=== PATIENT | male | born 1940 | race Caucasian/White ===

== ENCOUNTER 2016-10-11 08:53 | Day surgery (SDC) | payer OTHER ==
[2016-10-11] MEDS ORDERED: D5 LR 1000 ML 1,000 ML IV ONE (09:32)
[2016-10-11] MEDS ORDERED: DIPRIVAN VIAL 20 ML ONE (10:43)
[2016-10-11 11:23] VITALS: BP 122/74
== END 2016-10-11 10:27 | disposition home or self-care (01) ==
LOC: SURG1 08:53
PROVIDERS: ATTEND Internal Medicine Gastroenterology
PROC: 0DJ08ZZ Inspection of Upper Intestinal Tract, Via Natural or Artificial Opening Endoscopic (ICD-10-PCS; principal; 2016-10-11 10:00)
PROC: 0DB88ZX Excision of Small Intestine, Via Natural or Artificial Opening Endoscopic, Diagnostic (ICD-10-PCS; principal; 2016-10-11 10:00)
PROC: 0DB68ZX Excision of Stomach, Via Natural or Artificial Opening Endoscopic, Diagnostic (ICD-10-PCS; principal; 2016-10-11 10:00)
DX: K21.9 Gastro-esophageal reflux disease without esophagitis (principal); R10.13 Epigastric pain; K29.60 Other gastritis without bleeding; K25.9 Gastric ulcer, unspecified as acute or chronic, without hemorrhage or perforation; K44.9 Diaphragmatic hernia without obstruction or gangrene; K20.8 Other esophagitis; Z85.858 Personal history of malignant neoplasm of other endocrine glands; Z80.0 Family history of malignant neoplasm of digestive organs
CPT/HCPCS: 99100; A4217; J3490; J7120

== ENCOUNTER → 2016-10-15 | Outpatient (CLI) | payer OTHER ==
[2016-10-11 11:23] VITALS: BP 122/74
--- NOTE | 2016-10-16 06:46 | RAD ---
HISTORY: Frontal headaches, sinusitis Study: Sinuses three view Comparison: None Findings: There is a rounded density in the base of the right frontal sinus and similar findings in the left f rontal sinus most consistent with retention cysts. The ethmoid sinuses, maxillary sinuses, and sphen oid sinuses are clear. IMPRESSION: Bilateral frontal sinus retention cysts Reported By:
== END ==
LOC: RAD 16:10
PROVIDERS: ATTEND Nurse Practitioner Family
DX: J32.0 Chronic maxillary sinusitis (principal)
CPT/HCPCS: 70220

== ENCOUNTER → 2016-10-24 | Outpatient (CLI) | payer OTHER ==
[2016-10-11 11:23] VITALS: BP 122/74
[2016-10-24 09:47] LABS: CREATININE 0.93 mg/dL (0.70-1.30)
--- NOTE | 2016-10-24 10:45 | MRI ---
HISTORY: Increased frequency of headaches. Study: MR brain with and without IV contrast Comparison: Head CT dated November 02, 2013. Technique: Multiplanar multi-sequence MRI of the brain was obtained there to and after the uneventfu l administration of 18 cc of Omniscan contrast. Findings: The midline structures are unremarkable. The evaluation of the brain parenchyma demonstra colton no abnormal signal characteristics to suggest intraparenchymal mass or hemorrhage. There is no a bnormal enhancement on post-contrast imaging. There are scattered foci and confluent areas of increa sed T2/FLAIR signal within the periventricular, deep and subcortical white matter regions bilaterall y. Findings are nonspecific, but can be seen in the setting of small vessel disease in a patient of this age. No extra-axial fluid collections are observed. The ventricular system is symmetric and no ndilated. The CP angle is normal in its appearance without brainstem mass or evidence for acoustic neuroma. The flow voids on both T1 and T2 weighted imaging appear unremarkable. Evaluation of the diffusion weighted imaging does not demonstrate abnormal signal characteristics to suggest acute is chemic change. There is moderate mucoperiosteal thickening of the right frontal sinus and ethmoid a ir cells bilaterally. The extracranial structures are unremarkable. IMPRESSION: 1. No acute intracranial abnormality is evident. 2. Nonspecific white matter changes as above. 3. Mucosal sinus disease involving the right frontal sinus and ethmoid air cells bilaterally. Reported By:
== END ==
LOC: RAD 09:24
PROVIDERS: ATTEND Psychiatry & Neurology Neurology
DX: R51 Headache (principal)
CPT/HCPCS: 36415; 70552; 82565; 84520

== ENCOUNTER → 2016-11-19 | Outpatient (CLI) | payer OTHER ==
--- NOTE | 2016-11-19 15:28 | CT ---
CT OF THE PARANASAL SINUSES WITHOUT IV CONTRAST: CLINICAL INDICATION: Headache and sinusitis TECHNIQUE: Multiple-row detector helical CT examination of the paranasal sinuses without IV contrast . Axial, sagittal, and coronal reconstructed images. COMPARISON: Brain MRI 10/24/2016 FINDINGS: Limited intracranial images are normal. Nasopharyngeal soft tissues are normal. Mastoid and middle e ar complexes are clear. There is bilateral frontal sinus opacification. Maxillary sinuses and ostia are clear. Patchy bilateral but worse on the left ethmoid air cell opacity. Sinus mucosal thickening of the sphenoid sinus. No nasal cavity polyps or masses. There is nasal septum deviation to the lef t with a spur best seen on series 3, image 30. Anterior and central skull base bernabe are intact. IMPRESSION: 1. Sinus disease as described above. Reported By:
== END ==
LOC: RAD 13:46
PROVIDERS: ATTEND Otolaryngology
DX: R51 Headache (principal); J32.8 Other chronic sinusitis
CPT/HCPCS: 70486

== ENCOUNTER → 2016-12-19 | Outpatient (CLI) | payer OTHER ==
[2016-12-19 14:21] LABS: BASOPHILS % (AUTO) 0.7 % (0.2-1.0); EOSINOPHILS # (AUTO) 0.3 x10^3/uL (0.0-0.2); EOSINOPHILS % (AUTO) 5.9 % (0.9-2.9); HEMATOCRIT 43.3 % (42.0-54.0); HEMOGLOBIN 15.3 g/dL (13.5-18.0); LYMPHOCYTES # (AUTO) 1.3 X10^3/uL (1.3-2.9); LYMPHOCYTES % (AUTO) 28.8 % (21.0-51.0); MEAN CORPUSCULAR HGB CONC 35.4 g/dL (33.0-35.0); MEAN CORPUSCULAR VOLUME 93.3 fL (80.0-100.0); MONOCYTES # (AUTO) 0.4 x10^3/uL (0.3-0.8); MONOCYTES % (AUTO) 7.9 % (0.0-13.0); NEUTROPHILS # (AUTO) 2.6 x10^3/uL (2.2-4.8); NEUTROPHILS % (AUTO) 56.7 % (42.0-75.0); PLATELET COUNT 63 X10^3/uL (150.0-450.0); RED BLOOD COUNT 4.64 X10^6/uL (4.7-6.0); RED CELL DISTRIBUTION WIDTH 13.7 % (11.6-16.5); WHITE BLOOD COUNT 4.6 X10^3/uL (3.6-10.0)
--- NOTE | 2016-12-19 16:12 | CT ---
HISTORY: Early satiety, ITP. Study: CT abdomen without contrast Without Comparison: None available. Technique: Multiple axial images of the abdomen without the administration of IV contrast. Dose reduction tech niques including Automated Exposure Control (AEC) and adjustment of mA and kV were utilized. Findings: There two 5 mm pulmonary nodules within the right middle lobe (series 4, images 7 and 8). 4 mm pulmo nary nodule along the right major fissure (series 4, image 16). There two pulmonary nodules along th e left major fissure measuring 5 mm and 3 mm respectively (series 4, images 4 and 5). Bibasilar scar ring versus atelectasis. Otherwise, the visualized portions of the lung bases are unremarkable. Mult iple simple appearing cysts within the bilateral kidneys, the largest measuring 3.8 cm within the le ft inferior renal pole. Several too small to characterize hypo and hyperdense renal lesions. The taj er, spleen, pancreas, and adrenal glands are unremarkable in their CT appearance. The gallbladder is surgically absent. No significant mesenteric lymphadenopathy or stranding can be observed. No dimple e fluid or free air is seen within the abdomen. The visualized bowel appears normal. Degenerative c hanges of the spine. No aggressive osseous lesions. IMPRESSION: 1. No CT evidence of acute abdominal/pelvic pathology. 2. Multiple bilateral pulmonary nodules. Recommend dedicated CT of the chest with contrast for furth er characterization. Reported By:
== END ==
LOC: RAD 13:50
PROVIDERS: ATTEND Internal Medicine Medical Oncology
DX: R68.81 Early satiety (principal); D69.3 Immune thrombocytopenic purpura; R10.84 Generalized abdominal pain
CPT/HCPCS: 36415; 74150; 85025

== ENCOUNTER → 2016-12-26 | Outpatient (CLI) | payer OTHER ==
[2016-12-26 13:42] LABS: EOSINOPHILS # (AUTO) 0.3 x10^3/uL (0.0-0.2); EOSINOPHILS % (AUTO) 7.5 % (0.9-2.9); HEMATOCRIT 42.4 % (42.0-54.0); LYMPHOCYTES # (AUTO) 1.3 X10^3/uL (1.3-2.9); LYMPHOCYTES % (AUTO) 31.8 % (21.0-51.0); MEAN CORPUSCULAR HGB CONC 35.3 g/dL (33.0-35.0); MEAN CORPUSCULAR VOLUME 93.6 fL (80.0-100.0); MEAN PLATELET VOLUME 7.9 fL (7.4-11.0); MONOCYTES # (AUTO) 0.3 x10^3/uL (0.3-0.8); MONOCYTES % (AUTO) 8.6 % (0.0-13.0); NEUTROPHILS # (AUTO) 2.1 x10^3/uL (2.2-4.8); NEUTROPHILS % (AUTO) 51.1 % (42.0-75.0); PLATELET COUNT 67 X10^3/uL (150.0-450.0); RED BLOOD COUNT 4.53 X10^6/uL (4.7-6.0); RED CELL DISTRIBUTION WIDTH 13.9 % (11.6-16.5); WHITE BLOOD COUNT 4.1 X10^3/uL (3.6-10.0)
[2016-12-26 14:26] LABS: PLATELET MORPHOLOGY COMMENT NORMAL (NORMAL)
== END ==
LOC: LAB 13:11
PROVIDERS: ATTEND Internal Medicine Medical Oncology
DX: D69.3 Immune thrombocytopenic purpura (principal)
CPT/HCPCS: 36415; 85025

== ENCOUNTER → 2017-01-02 | Outpatient (CLI) | payer OTHER ==
[2017-01-02 14:56] LABS: BASOPHILS % (AUTO) 0.9 % (0.2-1.0); EOSINOPHILS # (AUTO) 0.3 x10^3/uL (0.0-0.2); EOSINOPHILS % (AUTO) 7.7 % (0.9-2.9); HEMATOCRIT 40.9 % (42.0-54.0); HEMOGLOBIN 14.6 g/dL (13.5-18.0); LYMPHOCYTES # (AUTO) 1.2 X10^3/uL (1.3-2.9); LYMPHOCYTES % (AUTO) 30.2 % (21.0-51.0); MEAN CORPUSCULAR HEMOGLOBIN 34.1 pg (27.0-34.0); MEAN CORPUSCULAR HGB CONC 35.7 g/dL (33.0-35.0); MEAN CORPUSCULAR VOLUME 95.6 fL (80.0-100.0); MEAN PLATELET VOLUME 9.4 fL (7.4-11.0); MONOCYTES # (AUTO) 0.3 x10^3/uL (0.3-0.8); MONOCYTES % (AUTO) 8.8 % (0.0-13.0); NEUTROPHILS % (AUTO) 52.4 % (42.0-75.0); PLATELET COUNT 78 X10^3/uL (150.0-450.0); RED BLOOD COUNT 4.28 X10^6/uL (4.7-6.0); RED CELL DISTRIBUTION WIDTH 13.7 % (11.6-16.5); WHITE BLOOD COUNT 3.8 X10^3/uL (3.6-10.0)
== END ==
LOC: LAB 14:17
PROVIDERS: ATTEND Internal Medicine Medical Oncology
DX: D69.3 Immune thrombocytopenic purpura (principal)
CPT/HCPCS: 36415; 85025

== ENCOUNTER → 2017-01-09 | Outpatient (CLI) | payer OTHER ==
[2017-01-09 12:59] LABS: BASOPHILS % (AUTO) 0.8 % (0.2-1.0); EOSINOPHILS # (AUTO) 0.3 x10^3/uL (0.0-0.2); EOSINOPHILS % (AUTO) 7.3 % (0.9-2.9); HEMATOCRIT 42.4 % (42.0-54.0); LYMPHOCYTES # (AUTO) 1.3 X10^3/uL (1.3-2.9); LYMPHOCYTES % (AUTO) 30.4 % (21.0-51.0); MEAN CORPUSCULAR HEMOGLOBIN 33.6 pg (27.0-34.0); MEAN CORPUSCULAR HGB CONC 35.4 g/dL (33.0-35.0); MEAN CORPUSCULAR VOLUME 94.9 fL (80.0-100.0); MEAN PLATELET VOLUME 8.1 fL (7.4-11.0); MONOCYTES # (AUTO) 0.4 x10^3/uL (0.3-0.8); MONOCYTES % (AUTO) 8.8 % (0.0-13.0); NEUTROPHILS # (AUTO) 2.2 x10^3/uL (2.2-4.8); NEUTROPHILS % (AUTO) 52.7 % (42.0-75.0); PLATELET COUNT 62 X10^3/uL (150.0-450.0); RED BLOOD COUNT 4.47 X10^6/uL (4.7-6.0); RED CELL DISTRIBUTION WIDTH 14.1 % (11.6-16.5); WHITE BLOOD COUNT 4.1 X10^3/uL (3.6-10.0)
== END ==
LOC: LAB 12:23
PROVIDERS: ATTEND Internal Medicine Medical Oncology
DX: D69.3 Immune thrombocytopenic purpura (principal)
CPT/HCPCS: 36415; 85025

== ENCOUNTER → 2017-02-07 | Outpatient (CLI) | payer OTHER ==
[2017-02-07 18:14] LABS: BASOPHILS % (AUTO) 1.1 % (0.2-1.0); EOSINOPHILS # (AUTO) 0.3 x10^3/uL (0.0-0.2); EOSINOPHILS % (AUTO) 8.6 % (0.9-2.9); HEMATOCRIT 42.2 % (42.0-54.0); LYMPHOCYTES # (AUTO) 1.2 X10^3/uL (1.3-2.9); LYMPHOCYTES % (AUTO) 35.9 % (21.0-51.0); MEAN CORPUSCULAR HEMOGLOBIN 34.7 pg (27.0-34.0); MEAN CORPUSCULAR HGB CONC 35.6 g/dL (33.0-35.0); MEAN CORPUSCULAR VOLUME 97.6 fL (80.0-100.0); MEAN PLATELET VOLUME 8.8 fL (7.4-11.0); MONOCYTES # (AUTO) 0.3 x10^3/uL (0.3-0.8); MONOCYTES % (AUTO) 8.3 % (0.0-13.0); NEUTROPHILS # (AUTO) 1.5 x10^3/uL (2.2-4.8); NEUTROPHILS % (AUTO) 46.1 % (42.0-75.0); PLATELET COUNT 61 X10^3/uL (150.0-450.0); RED BLOOD COUNT 4.32 X10^6/uL (4.7-6.0); RED CELL DISTRIBUTION WIDTH 14.3 % (11.6-16.5); WHITE BLOOD COUNT 3.3 X10^3/uL (3.6-10.0)
[2017-02-07 18:21] LABS: BLOOD UREA NITROGEN 17 mg/dL (7-18); CALCIUM 8.3 mg/dL (8.5-10.1); CARBON DIOXIDE 26.6 mmol/L (21-32); CHLORIDE 107 mmol/L (98-107); COR NA(FOR HYPERGLY) 143 mmol/L (136-145); CREATININE 0.94 mg/dL (0.70-1.30); GLUCOSE 124 mg/dL (65-99); SODIUM 142 mmol/L (136-145); eGFR BLACK RACES > 60 (>60); eGFR NON BLACK RACES > 60 (>60)
[2017-02-07 18:55] LABS: ERYTHROCYTE SEDIMENTATION RATE 2 MM/HOUR (0-15)
[2017-02-08 14:45] LABS: PLATELET MORPHOLOGY COMMENT NORMAL (NORMAL)
== END ==
LOC: LAB 17:35
PROVIDERS: ATTEND Nurse Practitioner Family
DX: D69.3 Immune thrombocytopenic purpura (principal); I10 Essential (primary) hypertension
CPT/HCPCS: 36415; 80048; 85025; 85652

== ENCOUNTER 2017-02-28 08:38 | Day surgery (SDC) | payer OTHER ==
[2017-02-28] MEDS ORDERED: D5 LR 1000 ML 1,000 ML IV ONE (08:48)
[2017-02-28] MEDS ORDERED: DIPRIVAN VIAL 20 ML ONE (10:14)
[2017-02-28 11:16] VITALS: BP 121/66
== END 2017-02-28 10:55 | disposition home or self-care (01) ==
LOC: SURG1 08:38
PROVIDERS: ATTEND Internal Medicine Gastroenterology
PROC: 0DJ08ZZ Inspection of Upper Intestinal Tract, Via Natural or Artificial Opening Endoscopic (ICD-10-PCS; principal; 2017-02-28 12:45)
PROC: 0DB68ZX Excision of Stomach, Via Natural or Artificial Opening Endoscopic, Diagnostic (ICD-10-PCS; principal; 2017-02-28 12:45)
PROC: 0DB88ZX Excision of Small Intestine, Via Natural or Artificial Opening Endoscopic, Diagnostic (ICD-10-PCS; principal; 2017-02-28 12:45)
DX: K25.9 Gastric ulcer, unspecified as acute or chronic, without hemorrhage or perforation (principal); R10.13 Epigastric pain; K21.9 Gastro-esophageal reflux disease without esophagitis; Z80.0 Family history of malignant neoplasm of digestive organs; K44.9 Diaphragmatic hernia without obstruction or gangrene; K29.60 Other gastritis without bleeding
CPT/HCPCS: A4217; J3490; J7120

== ENCOUNTER → 2017-03-21 | Outpatient (CLI) | payer OTHER ==
[2017-02-28 11:16] VITALS: BP 121/66
--- NOTE | 2017-03-25 15:43 | CT ---
HISTORY: Malignant neoplasm salivary gland Study: CT chest without contrast Comparison: None Technique: Axial noncontrast images with coronal and sagittal reformats. High-resolution images were obtained. Dose reduction procedures were used with mA/kv adjusted for body size. Findings: Examination of the mediastinum demonstrated no evidence for mediastinal masses, enlarged mediastinal adenopathy, or enlarged hilar adenopathy. Extensive coronary artery calcifications are present. Small hiatal hernia is present. No pleural effusions are identified. No chest wall or axillary abnormality is identified. Those portions of the upper abdominal organs visualized were within normal limits to the limitations of an unenhanced examination. Examination of the lung wallace demonstrated no signific ant nodules, alveolar infiltrates, masses, areas of consolidation, peribronchial thickening or bronch iectasis. IMPRESSION: Lungs clear Small hiatal hernia Reported By:
== END ==
LOC: RAD 11:29
PROVIDERS: ATTEND Internal Medicine Hematology & Oncology
DX: R91.8 Other nonspecific abnormal finding of lung field (principal); C07 Malignant neoplasm of parotid gland; K44.9 Diaphragmatic hernia without obstruction or gangrene
CPT/HCPCS: 71250